=== PATIENT | female | born 1990 | race Caucasian/White ===

== ENCOUNTER 2018-06-16 18:10 | Inpatient (IN) | payer OTHER ==
[~2018-06-16] VITALS: Ht 167.6 cm; Wt 92.0 kg
[~2018-06-16 18:10] MED LIST: CHOL1CAP67 PO; CYAN100073 PO; PRENTAB26 PO
--- NOTE | 2018-06-16 18:37 | Progress Note ---
Progress Note Date of Service Jun 16, 2018. Progress Note Outpatient Note 27 F P0000 at 40.2 weeks here to rule out labor. FHT Cat 1 with irregular contractions every 3 minutes. FHT Cat 1. Cervix 1/60/-3/vertex/posterior. Will ambulate to r/o labor and re-check.
[2018-06-16] MEDS ORDERED: VALA500T60 PO (18:54)
[2018-06-16] MEDS ORDERED: LACTATED RINGER'S 1000ML 1,000 ML IV PRN (19:58)
--- NOTE | 2018-06-16 20:03 | Progress Note ---
Progress Note Date of Service Jun 16, 2018. Progress Note Admit Note Cervix re-checked. T Cat 1. Cervix changed to 90/-3/vertex. GBS is negative will admit in labor. Patient planning for epidural.
[2018-06-16 20:10] VITALS: Ht 167.6 cm; Wt 92.0 kg
[2018-06-16] MEDS ORDERED: BUTORPHANOL TARTRATE 1 MG/ML VIAL IV PRN (20:45)
[2018-06-16] MEDS ORDERED: NURSING VERBAL MED ORDER ONE (20:45)
[2018-06-16] MEDS ORDERED: BUPIVACAINE 0.25% 30 ML VIAL ONE (20:56)
[2018-06-16] MEDS ORDERED: FENTANYL CITRATE INJ 50 MCG/1 ML 2 ML VIAL ONE (20:57)
[2018-06-16] MEDS ORDERED: EpHEDrine SULFATE INJ 50 MG/ML AMP ONE (20:57)
[2018-06-16] MEDS ORDERED: FENTANYL 2MCG/ML ROPIV 1.25MG/ML 100ML BAG ONE (20:57)
[2018-06-16 21:00] LABS: HEMATOCRIT 33.1 % (37-47); MEAN CELL VOLUME 91.7 fL (80-100); MEAN CORPUSCULAR HEMOGLOBIN 30.5 pg (25-34); MEAN CORPUSCULAR HGB CONC 33.2 g/dl (32-36); MEAN PLATELET VOLUME 9.6 fL (7.4-10.4); PLATELET COUNT 273 K/uL (130-400); RED CELL DISTRIBUTION WIDTH CV 15.2 % (11.5-14.5); RED CELL DISTRIBUTION WIDTH SD 51.1 fL (36.4-46.3); WHITE BLOOD COUNT 18.04 K/uL (4.8-10.8)
[2018-06-16] MEDS ORDERED: NALOXONE HCL INJ 1 MG in SODIUM CHLORIDE 0.9% 1000ML 1,000 ML IV PRN (22:08)
[2018-06-16] MEDS ORDERED: LACTATED RINGER'S 1000ML 500 ML IV PRN (22:08)
[2018-06-16] MEDS: LACTATED RINGER'S 1000ML 1,000 ML IV SCH (22:11)
[2018-06-16] MEDS ORDERED: NALBUPHINE HCL INJ 10 MG/ML 1ML AMP IV PRN (22:15)
[2018-06-16] MEDS ORDERED: ONDANSETRON INJ 2 MG/ML 2 ML VIAL IV PRN (22:15)
[2018-06-16] MEDS ORDERED: NALOXONE HCL INJ 0.4 MG/1 ML VIAL/CARP IV PRN (22:15)
[2018-06-16] MEDS ORDERED: DiphenhydrAMINE HCL 50 MG/ML VIAL IV PRN (22:15)
[2018-06-16] MEDS: EpHEDrine SULFATE INJ 50 MG/ML AMP IV PRN ×2 (23:37→23:38)
[2018-06-17] MEDS: LACTATED RINGER'S 1000ML 1,000 ML IV SCH ×2 (03:32→10:15)
[2018-06-17] MEDS: FENTANYL 2MCG/ML ROPIV 1.25MG/ML 100ML BAG EPI PRN ×2 (05:36→06:59)
[2018-06-17] MEDS ORDERED: LACTATED RINGER'S 1000ML 500 ML IV PRN (07:05)
[2018-06-17] MEDS ORDERED: OXYTOCIN 30 UNITS/500ML NSS IV PRN ×2 (07:15→11:30)
[2018-06-17] MEDS ORDERED: MISOPROSTOL 200 MCG TAB ONE (11:11)
[2018-06-17] MEDS ORDERED: LACTATED RINGER'S 1000ML 1,000 ML IV SCH (11:21)
[2018-06-17] MEDS ORDERED: LANOLIN OINT EXT PRN (11:30)
[2018-06-17] MEDS ORDERED: SUPERCREAM 0.870 % 15GM JAR EXT PRN (11:30)
[2018-06-17] MEDS ORDERED: MISOPROSTOL 200 MCG TAB PR SCH (11:30)
[2018-06-17] MEDS ORDERED: HYDROCORTISONE ACETATE 25 MG SUPP PR PRN (11:30)
[2018-06-17] MEDS ORDERED: ACETAMINOPHEN 325 MG TAB PO PRN (11:30)
[2018-06-17] MEDS ORDERED: BENZOCAINE 20% AER SPR 82.5 GM CAN EXT PRN (11:30)
[2018-06-17] MEDS ORDERED: DIPHTHERIA/TETANUS/PERTUSSIS 0.5 ML SYR/VIAL IM. ONE (11:30)
[2018-06-17] MEDS ORDERED: MEASLES, MUMPS & RUBELLA VIRUS VIAL SQ. ONE (11:30)
--- NOTE | 2018-06-17 11:33 | Anesthesia Procedure Note ---
Anesthesia Epidural Removal Nt Date & Time Jun 17, 2018 at 11:33 Vital Signs Pain Intensity: 0.0 Notes Mental Status: alert / awake / arousable, participated in evaluation Nausea / Vomiting: adequately controlled Pain: adequately controlled Airway Patency, RR, SpO2: stable & adequate BP & HR: stable & adequate Hydration State: stable & adequate Neuraxial Anesthesia: was administered Anesthetic Complications: no major complications apparent, pt satisfied with anesthetic care Epidural: removed without complications, with tip intact
--- NOTE | 2018-06-17 11:53 | DELIVERY SUMMARY ---
DATE OF OPERATION: 06/17/2018 TIME OF DELIVERY OF BABY: 10:47 a.m. TIME OF DELIVERY OF PLACENTA: 11:10 a.m. DETAILS OF DELIVERY: Patient was found to be fully dilated and desired to push. She pushed for about 2-1/2 hours and baby's head was and patient was exhausted. Dark meconium stained fluid noted during pushing. The cement despatch operator and the nursery team was in the room. After verbal consent was obtained from the patient, a right medial lateral episiotomy was opened. Head was delivered without difficulty. Shoulders were delivered with minimal traction and baby was handed off to the mother where mouth and nose were suctioned. Cord was clamped x cut at 1-minute delay and cord blood was obtained. Then perineum and vagina were checked for lacerations. There was only episiotomy, which was opened earlier. No other lacerations found. Rectal exam was done and it was confirmed to be a second degree. Excellent sphincter tone was noted. Gloves were changed. This was repaired with 2-0 Vicryl in a running locked fashion bringing the vaginal mucosa together, bulbocavernosus muscles together and the skin in a subcuticular fashion. Excellent hemostasis was achieved. Placenta was found to be in the vagina, delivered spontaneously as intact and complete. Uterus was explored, found to be empty. Lower segment was cleared off all clots and debris. Fundus was firm. EBL was 300 mL. Mom and baby tolerated the procedure well. Sponge, lap, needle counts were correct x2. Baby was a viable female . Apgars 9/9, weight is 3755 gr. No complications happened and I was present during whole procedure I attest to the content of the Intraoperative Record and any orders documented therein. Any exceptions are noted below. MTDD
[2018-06-17 15:00] VITALS: BP 128/81; PULSE 116; TEMP 37.2; O2SAT 96
[2018-06-17] MEDS: IBUPROFEN 600 MG TAB PO PRN ×2 (15:15→20:06)
[2018-06-17 19:25] VITALS: BP 104/70; PULSE 76; TEMP 36.5; O2SAT 97
[2018-06-17] MEDS: DOCUSATE SODIUM 100 MG CAP PO SCH (20:05)
[2018-06-17] MEDS: OXYCODONE/ACETAMINOPHEN 5-325 TAB PO PRN (21:18)
[2018-06-17 23:30] VITALS: BP 108/69; PULSE 73; TEMP 36.7; O2SAT 97
[2018-06-18] MEDS: IBUPROFEN 600 MG TAB PO PRN ×4 (00:09→20:10)
[2018-06-18] MEDS: OXYCODONE/ACETAMINOPHEN 5-325 TAB PO PRN ×4 (02:21→21:47)
[2018-06-18 04:12] VITALS: BP 99/63; PULSE 68; TEMP 36.6; O2SAT 96
--- NOTE | 2018-06-18 06:21 | OB/GYN Progress Note ---
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 Patient is seen and examined. She feels well, no complaints. Ambulating without dizziness Voiding without difficulty Tolerating regular diet with out N&V Bleeding is minimal No fever/ chills/ CP/ SOB/ N&V/ Leg pain Breast feeding without problems Date Time Temp Pulse Resp B/P (MAP) Pulse Ox O2 Delivery O2 Flow Rate FiO2 06/18/18 04:12 36.6 68 16 99/63 (75) 96 Room Air 06/17/18 23:30 36.7 73 18 108/69 (82) 97 Room Air 06/17/18 19:25 36.5 76 20 104/70 (81) 97 Room Air 06/17/18 19:25 97 Room Air 06/17/18 15:00 37.2 116 20 128/81 (97) 96 Room Air 06/17/18 15:00 96 Room Air PE: General: Alert, orientedx3, NAD Abd: soft, NT, fundus firm, below Umbilicus Perineum intact, Lochia rubra minimal Ext; NT, no edema AP: 27 yo s/p , ppd# 1 VSS Afebrile doing well Continue routine care All questions were answered D/C home tomorrow
[2018-06-18 07:01] LABS: HEMATOCRIT 26.4 % (37-47); HEMOGLOBIN 8.7 g/dL (12.0-16.0); MEAN CELL VOLUME 93.6 fL (80-100); MEAN CORPUSCULAR HEMOGLOBIN 30.9 pg (25-34); MEAN PLATELET VOLUME 9.6 fL (7.4-10.4); PLATELET COUNT 243 K/uL (130-400); RED CELL DISTRIBUTION WIDTH CV 15.8 % (11.5-14.5); RED CELL DISTRIBUTION WIDTH SD 53.2 fL (36.4-46.3); WHITE BLOOD COUNT 13.48 K/uL (4.8-10.8)
[2018-06-18 07:40] VITALS: BP 102/68; PULSE 78; TEMP 36.8; O2SAT 95
[2018-06-18] MEDS: FERROUS SULFATE 325 MG TAB PO SCH (09:14)
[2018-06-18] MEDS: DOCUSATE SODIUM 100 MG CAP PO SCH ×2 (09:14→20:09)
[2018-06-18] MEDS: PRENATAL VITAMIN TAB PO SCH (10:13)
[2018-06-18 15:00] VITALS: BP 100/68; PULSE 73; TEMP 36.8; O2SAT 97
[2018-06-18] MEDS ORDERED: BISACODYL 5 MG TABEC PO SCH (20:00)
[2018-06-18 20:15] VITALS: BP 96/65; PULSE 81; TEMP 36.5; O2SAT 98
[2018-06-19 00:10] VITALS: BP 97/62; PULSE 91; TEMP 36.7; O2SAT 98
[2018-06-19] MEDS: IBUPROFEN 600 MG TAB PO PRN ×2 (04:40→12:15)
[2018-06-19] MEDS: OXYCODONE/ACETAMINOPHEN 5-325 TAB PO PRN (04:40)
[2018-06-19] MEDS ORDERED: BISACODYL 10 MG SUPP PR PRN (07:00)
[2018-06-19 07:45] VITALS: BP 101/69; PULSE 82; TEMP 36.7
[2018-06-19] MEDS ORDERED: MTR600X PO (09:25)
--- NOTE | 2018-06-19 09:27 | Discharge Instructions ---
Discharge Instructions Date of Service Jun 19, 2018. Admission Reason for Admission: Term In Labor Discharge Discharge Diagnosis / Problem: term delivered Discharge Goals Goal(s): Routine recovery after delivery Activity Recommendations Activity Limitations: as noted below Lifting Limitations: no more than 10 pounds, gradually increase as tolerated Exercise/Sports Limitations: gradually increase as tolerated May Resume Sexual Activity: after follow-up appointment Shower/Bathe: no limitations Driving or Machine Use: resume 3 days after discharge . Instructions / Follow-Up Instructions / Follow-Up ACTIVITY RECOMMENDATIONS: * Gradual return to full activity over the next 2-3 weeks. * No lifting - nothing heavier than baby over the next 2-3 weeks. * Do not engage in vigorous exercise, sexual activity or sports until cleared by your physician. * Do not drive or operate any motorized equipment until cleared by your physician. * You may shower/bathe daily. BREAST CARE: If you are not breast feeding: * Wear a supportive bra 24 hours a day for one to two weeks. * Avoid stimulating your breasts and nipples as much as possible during the first few weeks after delivery. * When taking a shower, have the warm water hit your back, not breasts. * When your breasts feel full, apply ice packs. Usually three to four times a day helps ease the discomfort. * Take a mild pain medication (Tylenol/Motrin) when you are uncomfortable. If breast feeding: * Use breast milk to lubricate nipples. Lansinoh cream may be used for sore nipples. You do not need to remove cream prior to breast feeding. If using a different brand of cream, check the label for directions regarding removal of cream prior to nursing. * Wear a supportive bra. * If having problems with breasts or breast feeding, call a speech correction consultant or your health care provider. EPISIOTOMY CARE: After delivery, if you have an episiotomy (stitches), the following steps will ease discomfort and aid healing. * For the first 24 hours after delivery, place ice packs next to your episiotomy to help reduce swelling. * After the first 24 hour-period, sitz baths, either portable or in the tub, are suggested. A shower with a shower arm sprayed over the episiotomy may be comforting. * Radhika care should be done after each voiding and bowel movement. Squirt warm water from a plastic bottle over the perineum (region of the body between the anus and urinary opening) and pat dry. * Use Dermoplast to ease discomfort. Shake container. [place] directly over the episiotomy. * Place a Tucks on a clean sanitary pad next to your episiotomy. OVER THE COUNTER MEDICATION: * For discomfort or pain, you may use Acetaminophen (Tylenol), Ibuprofen (Advil ), or Naproxen (Aleve) following the package directions. * For constipation you may use Colace following the package directions. SPECIAL CARE INSTRUCTIONS: When you are discharged from the hospital, it is important for you to follow the instructions listed below: * During the first week at home, you should be able to care for yourself and your baby. In addition, the usual light household activities are encouraged. * Limit your activities to the way you feel. Do not try to clean the house or move furniture. Be sensible. * If you actively engage in sports and have done so up until the time of your delivery, you may resume these activities as soon as you feel able. This may take up to one month or even longer. Use good judgment. * Continue to take your vitamins for at least six weeks after the of your baby. * Your diet need not be limited unless you were on a special diet before your delivery. Breast-feeding mothers need around 2500 calories per day and at least 64-80 ounces of fluid per day (8 to 10 glasses). * You should eat foods from the four major food groups. Crash diets or fad diets are to be avoided. Eating lean meats, fresh fruits and vegetables, low-fat dairy products, high fiber foods and a regular exercise program, will help you get back to your pre- weight without putting your health at risk. * Constipation is sometimes a problem after delivery. Take a mild laxative as needed. If breast feeding, Milk of Magnesia is acceptable to use. You may use a suppository or Fleets enema if no episiotomy. * A daily shower or tub bath is suggested. Be sure to thoroughly and gently dry the perineum. * A bloody vaginal discharge will usually continue until around four weeks post . A small amount of bleeding may continue for as long as six weeks. Vaginal discharge changes from the bright red bleeding after delivery to pink then brownish and finally yellowish-pink before becoming white and disappearing. * Bleeding may increase with activity. Your first period may come in 4-8 weeks. If you are breast feeding, your period may be delayed even longer. * [place] (sex) can begin whenever both you and your partner feel comfortable and do not have any form of genital infection. It is recommended that you wait until after your return appointment and discuss with your physician. If you have questions, please talk to your health care practitioner. A condom should be used to prevent infection and . * Foreplay, gentle intercourse and lubrication is very important the first several times to prevent pain. A water-based lubricant such as K-Y jelly or Astroglide may be used. * Tampons may be used six weeks after delivery. * Douching should be avoided for 6 weeks after delivery. * If you have RH negative blood and your baby is RH positive, you will receive RHOGAM by injection prior to discharge. The nurse will give you a card to keep with you that has the date and place that you received RHOGAM after delivery. * During your care, you had a Rubella screen done to check for the presence of rubella antibodies in your blood. If your test was negative, you will receive a Rubella vaccine prior to discharge. This vaccine may cause a fever, soreness at the injection site and flu-like symptoms. If these symptoms persist, notify your health care practitioner. is not advised for three months after a Rubella vaccine. There is a higher chance of having a baby with defects if conceived within three months of getting the vaccine. * If you were discharged 24 hours from delivery or before 48 hours: Visiting nurses will come to your home 48 hours after discharge to assess you and your baby. The visiting nurse will meet with you while you are in the hospital to arrange a time and get directions to your home. * Verbalizes understanding of car seat law as reviewed with patient nursing. * Car Seat hand-out given and reviewed with patient by nursing. * Shaken baby information reviewed with patient by nursing. Call you doctor if: * Heavy bleeding (saturating several pads an hour) or passing clots the size of your fist. * A fever >101 degrees F (38.3 degrees C) on two occasions four hours apart and/or chills. * Unusual pain in the pelvic or vaginal areas. * "Baby Blues" lasting longer than two weeks. If you have any questions or concerns, call your health care practitioner at . FOLLOW-UP VISIT: * Please call the office at to schedule a 6 week examination. It is important you keep this appointment. * It is important for you to make arrangements for either yearly or twice yearly check-ups thereafter. Current Hospital Diet Patient's current hospital diet: Regular OB Diet Discharge Diet Recommended Diet: Regular OB Diet Fluid Restriction: None Procedures Procedures Performed: Pending Studies Studies pending at discharge: no Medical Emergencies . Who to Call and When: Medical Emergencies: If at any time you feel your situation is an emergency, please call 911 immediately. . Non-Emergent Contact Non-Emergency issues call your: Primary Care Provider . . "Provider Documentation" section prepared by Miller Skinner. .
[2018-06-19] MEDS: DOCUSATE SODIUM 100 MG CAP PO SCH (09:45)
[2018-06-19] MEDS: PRENATAL VITAMIN TAB PO SCH (09:46)
[2018-06-19] MEDS: FERROUS SULFATE 325 MG TAB PO SCH (09:46)
--- NOTE | 2018-06-19 09:54 | OB/GYN Progress Note ---
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 Subjective conversation w/ patient Ambulation: ambulating normally Voiding: no voiding problems Passing Gas: Yes Diet Tolerance: Regular Diet Lochia: Small Feeding Type: Breast Feeding Objective Vital Signs Date Time Temp Pulse Resp B/P (MAP) Pulse Ox O2 Delivery O2 Flow Rate FiO2 06/19/18 07:45 36.7 82 18 101/69 (80) Room Air 06/19/18 07:45 Room Air 06/19/18 00:10 36.7 91 16 97/62 (74) 98 Room Air 06/18/18 20:15 36.5 81 16 96/65 (75) 98 Room Air 06/18/18 20:15 Room Air 06/18/18 15:00 36.8 73 18 100/68 (79) 97 Room Air 06/18/18 15:00 97 Room Air Physical Exam General Appearance: WELL-APPEARING, NO APPARENT DISTRESS Abdomen: normal bowel sounds, non tender, soft Fundus: Firm Extremities: non-tender, normal inspection Assessment and Plan Post- Day Number: 2 Continue Routine Care: discharged
[2018-06-19 14:50] VITALS: BP_DIAS 69; PULSE 82; TEMP 36.7
== END 2018-06-19 14:50 | disposition home or self-care (01) | DRG 775 ==
LOC: C.OPB 18:10 → C.LD 18:10 → C.OPB 20:01 → C.OBG 06-17 14:35
PROVIDERS: ADMIT Obstetrics & Gynecology; ATTEND Obstetrics & Gynecology
PROC: 0W8NXZZ Division of Female Perineum, External Approach (ICD-10-PCS; principal; 2018-06-17)
PROC: 10E0XZZ Delivery of Products of Conception, External Approach (ICD-10-PCS; principal; 2018-06-17)
DX: O48.0 Post-term pregnancy (principal); Z37.0 Single live birth; Z3A.40 40 weeks gestation of pregnancy